=== PATIENT | male | born 1985 | race Caucasian/White ===

== ENCOUNTER 2022-12-05 00:01 | Emergency (ER) | payer BC ==
[2022-12-05] MEDS ORDERED: Ondansetron PF 4 MG/2 ML Vial ONE ×2 (00:43→02:15)
[2022-12-05] MEDS ORDERED: Ketorolac Tromethamine 30 MG/ML VIAL ONE (00:43)
[2022-12-05 01:05] LABS: #Basophils 0.1 10x3/uL (0.0-0.2); #Eosinphils 0.3 10x3/uL (0.0-0.5); #Monocytes 0.6 10x3/uL (0.0-1.1); #Neutrophils 4.1 10x3/uL (1.5-8.4); %Basophils 0.7 % (0.0-2.0); %Eosinophils 3.9 % (0.0-6.0); %Lymphocytes 31.2 % (18.0-47.0); %Monocytes 8.2 % (0.0-10.0); %Neutrophils 55.6 % (40.0-75.0); Hemoglobin 14.7 g/dL (13.5-17.5); Mean Corpuscular HGB CONC 35.9 g/dL (32.0-36.0); Mean Corpuscular Hemoglobin 29.4 pg (27.0-33.0); Mean Platelet Volume 8.7 fl (7.4-10.4); Platelet Count 324 10x3/uL (150-450); RBC Distribution Width 12.1 % (11.5-14.5); White Blood Cell (WBC) Count 7.4 10x3/uL (3.5-10.5)
[2022-12-05 01:15] LABS: ALT (SGPT) 29 U/L (8-55); AST (SGOT) 23 U/L (5-34); Albumin 4.6 g/dL (3.5-5.0); Alkaline Phosphatase 79 U/L (40-110); Anion Gap 15 mmol/L (10-20); BUN (Urea Nitrogen) 11 mg/dL (8.9-20.6); Bilirubin, Total 0.3 mg/dL (0.2-1.2); Calc. Creatinine Clearance 0 mL/min (70-130); Calcium 9.8 mg/dL (7.8-10.44); Carbon Dioxide 26 mmol/L (22-29); Chloride 103 mmol/L (98-107); Estimated GFR 104; Globulin 3.3 g/dL (2.4-3.5); Glucose 110 mg/dL (70-105); Lipase 25 U/L (8-78); Potassium 3.9 mmol/L (3.5-5.1); Protein, Total 7.9 g/dL (6.0-8.3); Sodium 140 mmol/L (136-145)
[2022-12-05] MEDS ORDERED: Iopamidol 300 61% 100 ML VIAL FS ONE (08:11)
== END 2022-12-05 03:35 | disposition home or self-care (01) ==
LOC: CSHERS 00:01
DX: R10.13 Epigastric pain (principal); R11.2 Nausea with vomiting, unspecified
CPT/HCPCS: 74177; 80053; 83690; 85025; 96374; 96375; 96376; J1885; J2405; Q9967

== ENCOUNTER 2024-09-04 21:42 | Emergency (ER) | payer BC ==
[2024-09-04] MEDS ORDERED: Ondansetron PF 4 MG/2 ML Vial ONE (23:06)
[2024-09-04] MEDS ORDERED: Glucagon 1 MG/ML KIT ONE (23:07)
[2024-09-05] MEDS ORDERED: Lidocaine 1% PF 5 ML VIAL ONE (12:46)
[2024-09-05] MEDS ORDERED: Rocuronium Bromide 10 MG/ML (10ML VIAL) ONE (12:46)
[2024-09-05] MEDS ORDERED: PROPOFOL 40 ML ONE (12:46)
[2024-09-05] MEDS ORDERED: Dexamethasone 4 mg/ml Vial ONE (12:46)
[2024-09-05] MEDS ORDERED: Ondansetron PF 4 MG/2 ML Vial ONE (12:46)
[2024-09-05] MEDS ORDERED: SUGAMMADEX SODIUM 200 MG/2 ML VIAL ONE ×2 (12:46→12:48)
[2024-09-05] MEDS ORDERED: fentaNYL 50 mcg/mL 1 mL Vial ONE (12:47)
== END 2024-09-05 14:30 | disposition home or self-care (01) ==
LOC: CSHERS 21:42
DX: T18.128A Food in esophagus causing other injury, initial encounter (principal)
CPT/HCPCS: 96374; 96375; J1100; J1611; J2405; J2704; J3010